=== PATIENT | female | born 1950 | race Caucasian/White ===

== ENCOUNTER 2021-11-17 12:54 | Observation (INO) | payer MEDICARE, OTHER ==
[2021-11-17] MEDS ORDERED: Morphine 2 MG/ML VIAL SLOW IVP PRN (15:26)
[2021-11-17 17:40] VITALS: BMI 29.1
[2021-11-17] MEDS: Sodium Chloride 0.9% 1,000 ML IV SCH (17:44)
[2021-11-17] MEDS: Potassium Chloride 20 MEQ in Premix Bag 1 BAG IVPB SCH ×2 (17:45→21:34)
[2021-11-17] MEDS ORDERED: Cefepime 2 GM VIAL ONE (21:34)
[2021-11-17] MEDS: Cefepime 2 GM in Sodium Chloride 0.9% 100 ML IVPB SCH (21:35)
[2021-11-17] MEDS: metroNIDAZOLE 500 MG in Premix Bag 1 BAG IVPB SCH (22:12)
[2021-11-18 05:34] LABS: #Eosinphils 0.2 10x3/uL (0.0-0.5); #Monocytes 0.7 10x3/uL (0.0-1.1); #Neutrophils 4.9 10x3/uL (1.5-8.4); %Basophils 0.4 % (0.0-2.0); %Eosinophils 2.3 % (0.0-6.0); %Lymphocytes 22.9 % (18.0-47.0); %Monocytes 9.4 % (0.0-10.0); %Neutrophils 64.3 % (40.0-75.0); Hemoglobin 10.1 g/dL (12.0-15.5); Mean Corpuscular HGB CONC 34.2 g/dL (32.0-36.0); Mean Corpuscular Hemoglobin 29.4 pg (27.0-33.0); Mean Corpuscular Volume 85.8 fl (81.6-98.3); Mean Platelet Volume 9.8 fl (7.4-10.4); Platelet Count 255 10x3/uL (150-450); RBC Distribution Width 14.4 % (11.5-14.5); Red Blood Cell (RBC) Count 3.44 10x6/uL (3.90-5.03); White Blood Cell (WBC) Count 7.5 10x3/uL (3.5-10.5)
[2021-11-18 05:55] LABS: ALT (SGPT) 16 U/L (8-55); AST (SGOT) 20 U/L (5-34); Albumin 3.3 g/dL (3.4-4.8); Alkaline Phosphatase 88 U/L (40-110); Anion Gap 14 mmol/L (10-20); BUN (Urea Nitrogen) 15 mg/dL (9.8-20.1); Bilirubin, Total 0.5 mg/dL (0.2-1.2); Calc. Creatinine Clearance 87 mL/min (70-130); Calcium 8.7 mg/dL (7.8-10.44); Carbon Dioxide 23 mmol/L (23-31); Chloride 106 mmol/L (98-107); Globulin 2.9 g/dL (2.4-3.5); Glucose 105 mg/dL (83-110); Potassium 3.6 mmol/L (3.5-5.1); Protein, Total 6.2 g/dL (5.8-8.1); Sodium 139 mmol/L (136-145)
[2021-11-18] MEDS: metroNIDAZOLE 500 MG in Premix Bag 1 BAG IVPB SCH (06:17)
[2021-11-18] MEDS: Sodium Chloride 0.9% 1,000 ML IV SCH ×2 (06:17→15:32)
[2021-11-18] MEDS ORDERED: EPINEPHrine 1 MG/ML AMP ONE (07:05)
[2021-11-18] MEDS ORDERED: Bupivacaine PF 0.5% 30 ML VIAL ONE (07:06)
[2021-11-18] MEDS ORDERED: PROPOFOL 20 ML ONE (07:57)
[2021-11-18] MEDS ORDERED: Fentanyl 100 MCG/2 ML VIAL ONE ×2 (07:57→09:49)
[2021-11-18] MEDS ORDERED: Lidocaine 1% PF 5 ML VIAL ONE (07:58)
[2021-11-18] MEDS ORDERED: Ondansetron PF 4 MG/2 ML Vial ONE (07:58)
[2021-11-18] MEDS ORDERED: Dexamethasone 4 mg/ml Vial ONE (07:58)
[2021-11-18] MEDS ORDERED: Rocuronium Bromide 10 MG/ML (10ML VIAL) ONE (07:59)
[2021-11-18] MEDS ORDERED: PHENYLEPHRINE-NS 100 MCG/ML 10 ML SYRINGE ONE (08:23)
[2021-11-18] MEDS ORDERED: Meperidine HCl/PF 25 MG/ML VIAL ONE (08:36)
[2021-11-18] MEDS ORDERED: Glycopyrrolate 0.2 MG/ML 5 ML SYRINGE ONE (09:15)
[2021-11-18] MEDS: Cefepime 2 GM in Sodium Chloride 0.9% 100 ML IVPB SCH (11:01)
[2021-11-18] MEDS ORDERED: HYDROcodone/Acetaminophen 5/325 mg Tablet PO PRN (11:07)
[2021-11-18 12:51] VITALS: BP 98/61; TEMP 97
== END 2021-11-18 16:15 | disposition home or self-care (01) ==
LOC: CSHTELE 12:54
PROVIDERS: ADMIT Hospitalist; ATTEND Hospitalist
PROC: 0FT44ZZ Resection of Gallbladder, Percutaneous Endoscopic Approach (ICD-10-PCS; principal; 2021-11-18)
DX: K80.12 Calculus of gallbladder with acute and chronic cholecystitis without obstruction (principal); K66.0 Peritoneal adhesions (postprocedural) (postinfection); I10 Essential (primary) hypertension; E87.6 Hypokalemia; D64.9 Anemia, unspecified; Z79.83 Long term (current) use of bisphosphonates; Z79.899 Other long term (current) drug therapy
CPT/HCPCS: 47562; 80053; 85025; 93005; 96374; 96375; 96376; C1713; G0378 ×2; 36415; 88304; 93010; J0171; J0692; J1100; J2175; J2405; J2704; J3010; J3480; J3490; J7050; S0020

== ENCOUNTER 2022-01-20 17:59 | Inpatient (IN) | payer MEDICARE, OTHER ==
[2022-01-20 18:32] LABS: #Basophils 0.1 10x3/uL (0.0-0.2); #Eosinphils 0.3 10x3/uL (0.0-0.5); #Monocytes 0.8 10x3/uL (0.0-1.1); #Neutrophils 6.5 10x3/uL (1.5-8.4); %Basophils 0.5 % (0.0-2.0); %Eosinophils 2.4 % (0.0-6.0); %Lymphocytes 26.2 % (18.0-47.0); %Monocytes 7.6 % (0.0-10.0); Hemoglobin 10.3 g/dL (12.0-15.5); Mean Corpuscular HGB CONC 33.1 g/dL (32.0-36.0); Mean Corpuscular Hemoglobin 29.7 pg (27.0-33.0); Mean Corpuscular Volume 89.6 fl (81.6-98.3); Mean Platelet Volume 9.6 fl (7.4-10.4); Platelet Count 372 10x3/uL (150-450); RBC Distribution Width 13.5 % (11.5-14.5); Red Blood Cell (RBC) Count 3.47 10x6/uL (3.90-5.03); White Blood Cell (WBC) Count 10.2 10x3/uL (3.5-10.5)
[2022-01-20 18:48] LABS: ALT (SGPT) 21 U/L (8-55); AST (SGOT) 21 U/L (5-34); Albumin 4.1 g/dL (3.4-4.8); Alkaline Phosphatase 126 U/L (40-110); Anion Gap 15 mmol/L (10-20); BUN (Urea Nitrogen) 15 mg/dL (9.8-20.1); Bilirubin, Total 0.3 mg/dL (0.2-1.2); Calc. Creatinine Clearance 0 mL/min (70-130); Calcium 9.5 mg/dL (7.8-10.44); Carbon Dioxide 26 mmol/L (23-31); Chloride 102 mmol/L (98-107); Estimated GFR 64; Glucose 114 mg/dL (83-110); Potassium 3.7 mmol/L (3.5-5.1); Protein, Total 7.1 g/dL (5.8-8.1); Sodium 139 mmol/L (136-145)
[2022-01-20 20:18] LABS: Bilirubin Neg (Negative); Blood, Urine Negative (Negative); Clarity Clear (Clear); Glucose, Urine (Dipstick) Normal (Negative); Ketone, Urine Negative (Negative); Leukocyte 100 (Negative); Nitrite Negative (Negative); Protein, Urine (Dipstick) Negative (Neg-Trace); Specific Gravity, Urine 1.015 (1.002-1.036); Urobilinogen Normal mg/dL (Less than 2)
[2022-01-20 20:45] LABS: RBC/HPF 0-3 HPF (0-3); Squamous Epithelial 0-3 HPF (0-3)
[2022-01-20 20:46] LABS: Bacteria/HPF 1+ HPF (None Seen)
[2022-01-20 20:48] LABS: Mucous/LPF Rare LPF (<2+)
[2022-01-20] MEDS ORDERED: Acetaminophen 325 MG TAB PO PRN (22:11)
[2022-01-20 22:57] LABS: Magnesium 1.9 mg/dL (1.6-2.6)
[2022-01-21] MEDS ORDERED: Atorvastatin Calcium 40 MG TAB PO SCH ×2 (00:01→21:00)
[2022-01-21] MEDS ORDERED: Atorvastatin Calcium 40 MG TAB ONE (00:05)
[2022-01-21 00:49] LABS: Troponin I Less than 0.010 ng/mL (< 0.028)
[2022-01-21 01:05] LABS: SARS-CoV-2 NAA Rapid Test Not Detected (NotDetected)
[2022-01-21 03:58] LABS: #Eosinphils 0.3 10x3/uL (0.0-0.5); #Monocytes 0.7 10x3/uL (0.0-1.1); #Neutrophils 4.8 10x3/uL (1.5-8.4); %Basophils 0.4 % (0.0-2.0); %Eosinophils 3.2 % (0.0-6.0); %Lymphocytes 28.4 % (18.0-47.0); %Monocytes 8.4 % (0.0-10.0); %Neutrophils 59.4 % (40.0-75.0); Hemoglobin 9.8 g/dL (12.0-15.5); Mean Corpuscular HGB CONC 34.1 g/dL (32.0-36.0); Mean Corpuscular Hemoglobin 30.3 pg (27.0-33.0); Mean Corpuscular Volume 88.9 fl (81.6-98.3); Mean Platelet Volume 9.5 fl (7.4-10.4); Platelet Count 327 10x3/uL (150-450); RBC Distribution Width 13.6 % (11.5-14.5); Red Blood Cell (RBC) Count 3.23 10x6/uL (3.90-5.03); White Blood Cell (WBC) Count 8.1 10x3/uL (3.5-10.5)
[2022-01-21 04:09] LABS: Anion Gap 12 mmol/L (10-20); BUN (Urea Nitrogen) 14 mg/dL (9.8-20.1); Calc. Creatinine Clearance 0 mL/min (70-130); Calcium 9.7 mg/dL (7.8-10.44); Carbon Dioxide 28 mmol/L (23-31); Cardiac Risk 3.8 (Less than 4.5); Chloride 102 mmol/L (98-107); Cholesterol 164 mg/dl (< 200 Desired); Estimated GFR 76; Glucose 99 mg/dL (83-110); HDL Cholesterol 43 mg/dL (>60 Neg Risk); LDL Cholesterol, Calculated 96 mg/dL; Potassium 3.3 mmol/L (3.5-5.1); Sodium 139 mmol/L (136-145); Triglycerides 127 mg/dL (Less than 150)
[2022-01-21] MEDS ORDERED: Aspirin Chewable 81 MG TAB ONE (08:16)
[2022-01-21] MEDS ORDERED: Enoxaparin Sodium 40 MG/0.4 ML SYRINGE ONE (08:17)
[2022-01-21] MEDS ORDERED: Potassium Chloride 20 MEQ TAB PO SCH (08:30)
[2022-01-21] MEDS ORDERED: Potassium Chloride 20 MEQ TAB ONE (08:33)
[2022-01-21] MEDS ORDERED: Aspirin 81 mg Enteric Coated Tablet ONE (08:35)
[2022-01-21] MEDS: Enoxaparin Sodium 40 MG/0.4 ML SYRINGE SC SCH (08:40)
[2022-01-21] MEDS: Aspirin 81 mg Enteric Coated Tablet PO SCH (08:40)
[2022-01-21 12:36] LABS: Hemoglobin A1c 5.3 % (4.0-6.0)
[2022-01-21] MEDS ORDERED: Losartan 25 MG TAB PO SCH (14:00)
[2022-01-21] MEDS ORDERED: Amlodipine 10 MG TAB PO SCH (14:00)
[2022-01-21] MEDS ORDERED: Hydrochlorothiazide 25 MG TAB PO SCH (14:00)
[2022-01-21] MEDS ORDERED: Amlodipine 5 MG TAB PO SCH (14:00)
[2022-01-21] MEDS ORDERED: Amlodipine 5 MG TAB ONE (14:56)
[2022-01-21] MEDS ORDERED: Losartan 25 MG TAB ONE (14:56)
[2022-01-21 18:17] VITALS: BMI 31.8
[2022-01-21] MEDS ORDERED: Simvastatin 10 MG TAB PO SCH (21:00)
[2022-01-22 03:08] LABS: #Eosinphils 0.3 10x3/uL (0.0-0.5); #Monocytes 0.7 10x3/uL (0.0-1.1); #Neutrophils 4.3 10x3/uL (1.5-8.4); %Basophils 0.5 % (0.0-2.0); %Eosinophils 3.9 % (0.0-6.0); %Lymphocytes 33.3 % (18.0-47.0); %Monocytes 8.4 % (0.0-10.0); %Neutrophils 53.7 % (40.0-75.0); Mean Corpuscular HGB CONC 33.4 g/dL (32.0-36.0); Mean Corpuscular Volume 89.8 fl (81.6-98.3); Mean Platelet Volume 9.4 fl (7.4-10.4); Platelet Count 329 10x3/uL (150-450); RBC Distribution Width 13.5 % (11.5-14.5); Red Blood Cell (RBC) Count 3.33 10x6/uL (3.90-5.03); White Blood Cell (WBC) Count 8.1 10x3/uL (3.5-10.5)
[2022-01-22 04:17] LABS: Anion Gap 15 mmol/L (10-20); BUN (Urea Nitrogen) 15 mg/dL (9.8-20.1); Calc. Creatinine Clearance 86 mL/min (70-130); Calcium 9.5 mg/dL (7.8-10.44); Carbon Dioxide 23 mmol/L (23-31); Chloride 103 mmol/L (98-107); Estimated GFR 73; Glucose 94 mg/dL (83-110); Potassium 3.8 mmol/L (3.5-5.1); Sodium 137 mmol/L (136-145)
[2022-01-22] MEDS: Enoxaparin Sodium 40 MG/0.4 ML SYRINGE SC SCH (08:10)
[2022-01-22] MEDS: Aspirin 81 mg Enteric Coated Tablet PO SCH (08:11)
[2022-01-22] MEDS ORDERED: Amlodipine 5 MG TAB PO SCH (09:00)
[2022-01-22] MEDS ORDERED: Losartan Potassium 50 MG TAB PO SCH (09:00)
[2022-01-22] MEDS ORDERED: Hydrochlorothiazide 25 MG TAB PO SCH (09:00)
[2022-01-22 12:06] VITALS: TEMP 98.1
[2022-01-22 12:07] VITALS: BP 139/75
[2022-01-22 16:44] LABS: ANA Symphony (Qualitative) Negative (Negative); ANA Symphony (Quantitative) 0.3 Ratio (< 0.7 Negative); dsDNA IgG Antibody 0.8 IU/mL (<10 Negative)
== END 2022-01-22 12:45 | disposition home or self-care (01) | DRG 65 ==
LOC: CSHERS 17:59 → CSHERHOLD 21:18 → UNDOADMOB 01-21 → INTOOBSV 01-21 → CSHICU 01-21 17:01 → OBSVTOIN 01-22 09:16
PROVIDERS: ADMIT Family Medicine; ATTEND Family Medicine
DX: I63.9 Cerebral infarction, unspecified (principal); Q32.1 Other congenital malformations of trachea; K92.1 Melena; G81.94 Hemiplegia, unspecified affecting left nondominant side; I10 Essential (primary) hypertension; R47.01 Aphasia; G83.21 Monoplegia of upper limb affecting right dominant side; Z20.822 Contact with and (suspected) exposure to COVID-19; F41.9 Anxiety disorder, unspecified; Z79.899 Other long term (current) drug therapy; Z90.49 Acquired absence of other specified parts of digestive tract
CPT/HCPCS: 36415; 70450; 70551; 71045; 80048; 80053; 80061; 81003; 81015; 83036; 83735; 83880; 84484; 85025; 85652; 86038; 86225; 93005; 93306; 93880; 94760; J1650; U0002